=== PATIENT | female | born 1960 | race Hispanic/Latino ===

== ENCOUNTER 2018-11-25 10:37 | Outpatient (CLI) | payer OTHER ==
--- NOTE | 2018-11-25 12:15 | RAD ---
CERVICAL SPINE SERIES WITH OBLIQUES FIVE VIEWS: HISTORY: Acute neck pain. FINDINGS: Vertebral bodies are normal in height. Disk spaces are well preserved. There are mild degenerative fa cet changes present. No soft tissue swelling. IMPRESSION: Mild degenerative facet changes. POS: [facility]
== END 2018-11-25 10:38 | disposition home or self-care (01) ==
LOC: NAV RAD 10:37
PROVIDERS: ATTEND Family Medicine
DX: M54.2 Cervicalgia (principal); M47.812 Spondylosis without myelopathy or radiculopathy, cervical region
CPT/HCPCS: 72050